=== PATIENT | female | born 1955 | race Caucasian/White ===

== ENCOUNTER 2021-04-27 13:15 | Inpatient (IN) | payer BC ==
[~2021-04-27] VITALS: Ht 157.5 cm; Wt 105.7 kg
[2021-04-27] MEDS ORDERED: ACETAMINOPHEN ES 500 MG TABLET PO ONE (13:30)
[2021-04-27] MEDS ORDERED: BACLOFEN 10 MG TABLET PO ONE (13:30)
[2021-04-27] MEDS ORDERED: IV NORMAL SALINE 1000 ML BAG IV ONE (13:30)
[2021-04-27] MEDS ORDERED: LIDOCAINE 5% PATCH TD ONE ×2 (13:30→13:38)
[2021-04-27] MEDS ORDERED: BACLOFEN 10 MG TABLET ONE (13:38)
[2021-04-27] MEDS ORDERED: ACETAMINOPHEN ES 500 MG TABLET ONE (13:38)
[2021-04-27] MEDS ORDERED: TDAP DIPH,PERTUSS,TET VAC/PF 0.5 ML DISP.SYRIN IM ONE ×2 (13:45→13:57)
[2021-04-27] MEDS ORDERED: MORPHINE SULFATE 4 MG/1 ML DISP.SYRIN ONE (13:52)
[2021-04-27 14:00] LABS: HEMATOCRIT 38.9 % (31.2-41.9); MEAN CORPUSCULAR HEMOGLOBIN 30.5 uug (24.7-32.8); MEAN CORPUSCULAR VOLUME 90.3 fL (75.5-95.3); PLATELET COUNT (AUTO) 244 K/uL (179-408)
[2021-04-27 14:02] LABS: CREATININE 0.7 mg/dL (0.6-1.3)
[2021-04-27] MEDS ORDERED: MORPHINE SULFATE 4 MG/1 ML DISP.SYRIN IV ONE (14:15)
[2021-04-27] MEDS ORDERED: ONDANSETRON 4 MG/2 ML VIAL IV ONE (15:00)
[2021-04-27] MEDS ORDERED: ONDANSETRON 4 MG/2 ML VIAL ONE (15:04)
--- NOTE | 2021-04-27 15:13 | NUR ---
judith zhao at bedside, 1 significant other at bedside Pt is resting comfortably on supine srx2 up bed at lowest position
--- NOTE | 2021-04-27 16:00 | NUR ---
Pt ambulatory with stable gait. pt able to void without other concerns.
--- NOTE | 2021-04-27 16:13 | NUR ---
Pt reports black spots seen from R eye. reports mother had the same concern and is worried about retinal detachment. MD aware. pending call from [facility] for admission
--- NOTE | 2021-04-27 16:24 | NUR ---
gualberto PHILLIP at bedside
--- NOTE | 2021-04-27 16:25 | NUR ---
Ok to admit to Tele Bed, pending bed availability. Patient mentioned "floaters" recurring on L eye. aware.
[2021-04-27] MEDS ORDERED: Z GUARD REMEDY PASTE 57 GM TUBE TOP PRN (16:45)
[2021-04-27] MEDS ORDERED: HYDROCODONE/APAP 5-325MG TABLET PO PRN ×2 (16:45→20:30)
[2021-04-27] MEDS ORDERED: ONDANSETRON 4 MG/2 ML VIAL IV PRN (16:45)
--- NOTE | 2021-04-27 17:16 | NUR ---
Rm 305 Tele bed. no RN assigned yet.
--- NOTE | 2021-04-27 17:58 | NUR ---
Report given to Felisa LAUREANO
--- NOTE | 2021-04-27 18:45 | NUR ---
Patient received via gurney from ER, alert and oriented x4. Patient c/o generalized pain, but does not want any pain medications at this time. Ice pack provided for swelling of left wrist. Patient on RA with no SOB or difficulties breathing. Patient has right FA intact with no redness or swelling noted at this time. Made comfortable. Call light within easy reach. Will continue to monitor.
[2021-04-27 18:51] VITALS: BP 120/65
--- NOTE | 2021-04-27 19:01 | NUR ---
Pt. admitted to tele bed rm 305 , under care of [facility] completed
--- NOTE | 2021-04-27 19:30 | NUR ---
Pt is a new admit to Telemetry with an admitting diagnosis of Chest pain. Received pt in bed, awake, A&Ox3, verbally responsive, able to make needs known. No signs of acute distress on room air. Pertinent assessments done, repositioned comfortably in bed, admission care rendered. Belongings at bedside. Safety measures initiated, call light within reach.
[2021-04-27 20:13] VITALS: BP 129/67
[2021-04-27] MEDS: MORPHINE SULFATE 2 MG/1 ML DISP.SYRIN IV PRN (20:58)
--- NOTE | 2021-04-27 21:45 | NUR ---
Notified Dr. Johnston of pt's reactions to [place] and morphine medications. Received new order to DC [facility].
[2021-04-28 00:15] VITALS: BP 107/56
[2021-04-28 04:38] VITALS: BP 112/54
[2021-04-28] MEDS: MORPHINE SULFATE 2 MG/1 ML DISP.SYRIN IV PRN ×3 (05:25→15:35)
[2021-04-28] MEDS ORDERED: diphenhydrAMINE 25 MG CAP PO ONE (06:00)
--- NOTE | 2021-04-28 07:10 | NUR ---
Pt slept intermittently through the night, pain medication administered as ordered. Tolerated well. Wound care done on LLE abrasion, pending wound consult. Endorsed to day shift nurse to f/u on echo today and to refer to hospitalist pt's R eye having floaters. Safety measures maintained at all times, all need attended to and met.
[2021-04-28] MEDS ORDERED: FLUO20TA28 PO (07:29)
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
--- NOTE | 2021-04-28 11:00 | NUR ---
TELE MONITOR DC'D. WILL CONTINUE TO MONITOR.
[2021-04-28 11:30] VITALS: BP 116/58
--- NOTE | 2021-04-28 12:00 | NUR ---
PT SEEN BY PHYSICAL THERAPY, PT ABLE TO WALK TO BATHROOM WITH MIN ASSIST, ABLE TO GET OUT OF BED WITH MOD ASSIST. PLEASE SEE PHYSICAL THERAPY NOTES.
[2021-04-28] MEDS ORDERED: KETOROLAC TROMETHAMINE 30 MG INJ IM PRN (12:15)
[2021-04-28 15:02] LABS: HEMATOCRIT 37.3 % (31.2-41.9); MEAN CORPUSCULAR HEMOGLOBIN 30.6 uug (24.7-32.8); MEAN CORPUSCULAR VOLUME 91.1 fL (75.5-95.3); PLATELET COUNT (AUTO) 233 K/uL (179-408)
[2021-04-28 15:07] LABS: CREATININE 0.8 mg/dL (0.6-1.3); MAGNESIUM 2.4 mg/dL (1.8-2.4); PHOSPHOROUS 3.6 mg/dL (2.5-4.9)
[2021-04-28 15:21] VITALS: BP 115/55
[2021-04-28 15:30] LABS: THYROID STIMULATING HORMONE 2.128 mIU/mL (0.358-3.740)
[2021-04-28] MEDS ORDERED: LOSA50TA39 PO (16:54)
[2021-04-28] MEDS ORDERED: TRAM50TA2 PO (16:54)
[2021-04-28] MEDS: DOCUSATE SODIUM 100 MG CAPSULE PO SCH ×2 (18:14→20:59)
[2021-04-28 20:31] VITALS: BP 111/53
[2021-04-28] MEDS: MAGNESIUM HYDROXIDE 30 ML LIQUID UDC PO PRN (20:51)
[2021-04-28] MEDS: ACETAMINOPHEN 325 MG TABLET PO PRN (20:59)
[2021-04-29 00:13] VITALS: BP 107/49
[2021-04-29] MEDS: ACETAMINOPHEN 325 MG TABLET PO PRN ×3 (01:59→21:46)
--- NOTE | 2021-04-29 02:00 | NUR ---
Received pt resting in bed. Axox4, VSS, C/o of generalized pain 5/10, tolerable. IV R wrist 20G infiltrated. Pt NSR, no acute distress noted, denies chest pain, no SOB noted. Pt requested medications to have BM, administered MOM. Administered PRN Tylenol. Applied ice as needed. Left lower leg wound care completed. Needs attended to. Kept comfortable. Safety measures maintained. Call light and all personal items within pt reach. Will continue plan of care.
[2021-04-29 04:37] VITALS: BP 135/65
[2021-04-29 06:10] LABS: HEMATOCRIT 35.3 % (31.2-41.9); MEAN CORPUSCULAR HEMOGLOBIN 30.7 uug (24.7-32.8); MEAN CORPUSCULAR VOLUME 91.7 fL (75.5-95.3); PLATELET COUNT (AUTO) 223 K/uL (179-408)
[2021-04-29 06:47] LABS: CREATININE 0.6 mg/dL (0.6-1.3); MAGNESIUM 2.8 mg/dL (1.8-2.4); PHOSPHOROUS 3.5 mg/dL (2.5-4.9); POTASSIUM 4.3 mmol/L (3.5-5.1)
[2021-04-29] MEDS: DOCUSATE SODIUM 100 MG CAPSULE PO SCH ×2 (08:51→21:46)
[2021-04-29 11:29] VITALS: BP 112/67
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
[2021-04-29 15:30] VITALS: BP 125/91
[2021-04-29 21:25] VITALS: BP 148/50
[2021-04-30 00:36] VITALS: BP 132/61
[2021-04-30 04:00] VITALS: BP 128/70
--- NOTE | 2021-04-30 05:45 | NUR ---
UNEVENTFUL NOC.,SLEPT FAIRLY WELL.
[2021-04-30 06:37] LABS: MEAN CORPUSCULAR HEMOGLOBIN 30.1 uug (24.7-32.8); MEAN CORPUSCULAR VOLUME 91.5 fL (75.5-95.3); PLATELET COUNT (AUTO) 212 K/uL (179-408)
[2021-04-30 06:57] LABS: CREATININE 0.6 mg/dL (0.6-1.3); MAGNESIUM 2.6 mg/dL (1.8-2.4); PHOSPHOROUS 3.8 mg/dL (2.5-4.9); POTASSIUM 4.1 mmol/L (3.5-5.1)
[2021-04-30] MEDS: DOCUSATE SODIUM 100 MG CAPSULE PO SCH ×2 (08:14→20:00)
[2021-04-30] MEDS: ACETAMINOPHEN 325 MG TABLET PO PRN ×2 (08:34→18:48)
[2021-04-30] MEDS ORDERED: TRAM50TA2 PO (11:44)
[2021-04-30] MEDS ORDERED: PITA2TAB PO (11:45)
[2021-04-30 11:56] VITALS: BP 145/67
[2021-04-30 16:01] VITALS: BP 138/68
[2021-04-30] MEDS: MAGNESIUM HYDROXIDE 30 ML LIQUID UDC PO PRN (20:00)
[2021-04-30 20:05] VITALS: BP 130/60
[2021-05-01 00:04] VITALS: BP 116/51
[2021-05-01 04:05] VITALS: BP 132/64
--- NOTE | 2021-05-01 07:00 | NUR ---
RECEIVED SITTING ON CHAIR, STATED SHE HAD A BM LAST NIGHT AND WANTED TO WALK IN HALLWAY. NOTED WITH STEADY GAIT. DENIES PAIN OR SOB. WILL CONTINUE TO MONITOR.
[2021-05-01] MEDS: DOCUSATE SODIUM 100 MG CAPSULE PO SCH (08:22)
[2021-05-01] MEDS: ACETAMINOPHEN 325 MG TABLET PO PRN (08:26)
[2021-05-01 11:36] VITALS: BP 130/70
[2021-05-01 15:56] VITALS: BP 100/67
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
--- NOTE | 2021-05-01 17:47 | NUR ---
REPORT GIVEN TO JAEL AT [facility].
--- NOTE | 2021-05-01 19:00 | NUR ---
ALERT AND ORIENTED X4. AMBULATORY. DENIES PAIN OR SOB. NO DISTRESS. VS WNL. PATIENT FOR TRANSFER TO [facility]. WAITING FOR AMBULANCE. WILL ENDORSE TO NEXT SHIFT.
--- NOTE | 2021-05-01 19:36 | NUR ---
Pt discharged to [facility] in stable condition. Left via gurney with [facility] professional ambulance.
== END 2021-05-01 20:53 | DRG 313 ==
LOC: ER 13:17 → TELE3 18:02 → MEDSURG3 05-01 10:55
PROVIDERS: ADMIT Student in an Organized Health Care Education/Training Program; ATTEND Nurse Practitioner Acute Care
DX: R07.89 Other chest pain (principal); Z68.41 Body mass index [BMI] 40.0-44.9, adult; S81.812A Laceration without foreign body, left lower leg, initial encounter; E78.5 Hyperlipidemia, unspecified; I10 Essential (primary) hypertension; W22.11XA Striking against or struck by driver side automobile airbag, initial encounter; Y92.410 Unspecified street and highway as the place of occurrence of the external cause; E66.9 Obesity, unspecified; Z88.0 Allergy status to penicillin; Z88.2 Allergy status to sulfonamides; V43.52XA Car driver injured in collision with other type car in traffic accident, initial encounter; Z20.822 Contact with and (suspected) exposure to COVID-19; M79.662 Pain in left lower leg; M79.661 Pain in right lower leg; R53.1 Weakness; M25.532 Pain in left wrist; M25.511 Pain in right shoulder; Z90.710 Acquired absence of both cervix and uterus; Z71.3 Dietary counseling and surveillance
CPT/HCPCS: 36415; 70030-TC; 70450; 71045; 71111; 73030; 73110; 73590; 83735; 84100; 84443; 85025; 90715; 93005; 93307; 97161; A4217; A4663; A9150; G0378; J2270; J2405; J7030; Q0163